=== PATIENT | female | born 1940 | race Caucasian/White ===

== ENCOUNTER 2019-05-18 13:30 | Emergency (ER) | payer MEDICARE, OTHER ==
[~2019-05-18] VITALS: Ht 154.9 cm; Wt 61.2 kg
[~2019-05-18 13:30] MED LIST: ALBUPOW26 XX; CARI-277 PO; FENT12DI TD; GABA300C PO
[2019-05-18] MEDS ORDERED: SODIUM CHLORIDE 0.9% 1,000 ML IVB ONE (14:03)
[2019-05-18] MEDS ORDERED: ONDANSETRON HCL 4 MG/2 ML VIAL IV ONE (14:15)
[2019-05-18 14:19] LABS: Urine Bacteria FEW /hpf (None Seen); Urine Blood 3+ /uL (Negative); Urine Specific Gravity 1.007 (1.001-1.035); Urine WBC 94 /hpf (0 - 5)
[2019-05-18 14:40] LABS: Basophils # (auto) 0.1 uL; Basophils % (auto) 0.9 % (0.0-2.0); Eosinophils # (auto) 0.1 uL; Eosinophils % (auto) 1.1 % (0.0-7.0); Hematocrit 38.1 % (36.0-46.0); Hemoglobin 12.7 g/dL (12.2-16.2); Lymphocytes # (auto) 2.2 uL; Lymphocytes % (auto) 23.8 % (10.0-50.0); Mean Corpuscular Hemoglobin 29.6 pg (28.0-32.0); Mean Corpuscular Hgb Conc. 33.4 g/dL (32.0-36.0); Mean Corpuscular Volume 88.6 fL (80.0-100.0); Monocytes # (auto) 0.6 uL; Monocytes % (auto) 6.6 % (0.0-12.0); Neutrophils # (auto) 6.2 uL; Neutrophils % (auto) 67.6 % (37.0-80.0); Nucleated Red Blood Cells % 0.1 %; Platelet Count (auto) 200 10^3/uL (140-450); Red Cell Distribution Width 13.7 % (11.8-14.3); White Blood Cell 9.2 10^3/uL (4.4-10.8)
[2019-05-18 14:59] LABS: Albumin 3.8 g/dL (3.4-5.0); Calcium 9.1 mg/dL (8.5-10.1)
[2019-05-18 15:04] LABS: BUN/Creatinine Ratio 18.5; Bilirubin, Total 0.4 mg/dL (0.2-1.0); Total Protein 7.5 g/dL (6.4-8.2)
[2019-05-18] MEDS ORDERED: cefTRIAXone 1GM/50ML D5W 50 ML IV ONE (16:15)
[2019-05-18] MEDS ORDERED: MORPHINE SULF INJ 2 MG/ML SYRINGE 1ML IV ONE (16:15)
[2019-05-18 17:53] VITALS: BP 117/72
== END 2019-05-18 19:12 | disposition home or self-care (01) ==
LOC: ER 13:32
DX: N39.0 Urinary tract infection, site not specified (principal); J45.909 Unspecified asthma, uncomplicated
CPT/HCPCS: 36415; 74176; 80053; 81001; 85025; 96365; 96375; 99284; J0696; J2270; J2405; J7030

== ENCOUNTER 2021-09-11 09:56 | Inpatient (IN) | payer MEDICARE, MEDICAID ==
[~2021-09-11] VITALS: Ht 152.4 cm; Wt 58.9 kg
[2021-09-11] MEDS ORDERED: methylPREDNISolone SOD SUCC 125 MG/2 ML VL IV ONE (11:15)
[2021-09-11] MEDS ORDERED: ALBUTEROL SULF 2.5 MG/0.5ML(0.5%) NEB SOLN HHN ONE (11:15)
[2021-09-11] MEDS ORDERED: IPRATROPIUM BROM 0.5 MG/2.5ML INH SOL HHN ONE (11:15)
[2021-09-11 11:36] LABS: Urine Specific Gravity 1.004 (1.001-1.035)
[2021-09-11 11:37] LABS: Urine Blood 1+ /uL (Negative)
[2021-09-11 11:54] LABS: Basophils # (auto) 0 10 ^3/uL (0-0.2); Eosinophils # (auto) 0.1 10 ^3/uL (0-0.8); Eosinophils % (auto) 2.1 % (0.0-7.0); Hematocrit 37.7 % (36.0-46.0); Hemoglobin 12.8 g/dL (12.2-16.2); Lymphocytes # (auto) 1.2 10 ^3/uL (0.4-5.4); Lymphocytes % (auto) 24.8 % (10.0-50.0); Mean Corpuscular Hemoglobin 29.6 pg (28.0-32.0); Mean Corpuscular Hgb Conc. 33.9 g/dL (32.0-36.0); Mean Corpuscular Volume 87.5 fL (80.0-100.0); Monocytes # (auto) 0.5 10 ^3/uL (0-1.3); Monocytes % (auto) 11.2 % (0.0-12.0); Neutrophils # (auto) 2.9 10 ^3/uL (1.6-8.6); Neutrophils % (auto) 60.9 % (37.0-80.0); Nucleated Red Blood Cells % 0.2 %; Red Blood Cells 4.31 10^6/uL (4.0-5.20); Red Cell Distribution Width 13.9 % (11.8-14.3); White Blood Cell 4.8 10^3/uL (4.4-10.8)
[2021-09-11 12:14] LABS: Albumin 3.9 g/dL (3.4-5.0); Calcium 9.2 mg/dL (8.5-10.1); Potassium 3.1 mmol/L (3.5-5.1)
[2021-09-11 12:18] LABS: BUN/Creatinine Ratio 9.9; Bilirubin, Total 0.4 mg/dL (0.2-1.0); Total Protein 7.2 g/dL (6.4-8.2)
[2021-09-11] MEDS ORDERED: MORPHINE SULFATE INJECTION 2 MG/ML SYRG IV ONE ×2 (12:30→14:15)
[2021-09-11] MEDS ORDERED: ONDANSETRON HCL 4 MG/2 ML VIAL IV ONE (12:30)
[2021-09-11 14:06] LABS: Urine WBC 0 - 2 /hpf (0 - 5)
[2021-09-11 14:07] LABS: Urine Bacteria None Seen /hpf (None Seen)
[2021-09-11] MEDS: ALBUTEROL SULF 2.5 MG/0.5ML(0.5%) NEB SOLN NEB ONE ×2 (14:37→15:02)
[2021-09-11] MEDS ORDERED: MORPHINE SULFATE INJECTION 2 MG/ML SYRG IV PRN (17:00)
[2021-09-11] MEDS ORDERED: NITROGLYCERIN 0.4 MG SL TAB SL PRN (17:00)
[2021-09-11] MEDS ORDERED: POTASSIUM EFFERVESENT TAB 25 MEQ PO ONE (17:30)
[2021-09-11] MEDS ORDERED: ACETAMINOPHEN 500 MG TAB PO PRN (17:30)
[2021-09-11] MEDS ORDERED: methylPREDNISolone SOD SUCC 40 MG/ML VL IV SCH (17:30)
[2021-09-11] MEDS: ALBUTEROL SULF 2.5 MG/0.5ML(0.5%) NEB SOLN NEB SCH (18:00)
[2021-09-11] MEDS: IPRATROPIUM BROM 0.5 MG/2.5ML INH SOL NEB SCH (18:00)
[2021-09-11] MEDS: SODIUM CHLORIDE 0.9% 1,000 ML IV SCH (21:28)
[2021-09-11] MEDS: traMADol HCL 50 MG TAB PO PRN (21:28)
[2021-09-11 22:00] VITALS: BP 109/51
[2021-09-11 22:57] VITALS: BP 109/51
[2021-09-12] MEDS: ALBUTEROL SULF 2.5 MG/0.5ML(0.5%) NEB SOLN NEB SCH ×4 (00:18→18:57)
[2021-09-12] MEDS: IPRATROPIUM BROM 0.5 MG/2.5ML INH SOL NEB SCH ×4 (00:18→18:56)
[2021-09-12] MEDS: traMADol HCL 50 MG TAB PO PRN (04:37)
[2021-09-12] MEDS: DOXYCYCLINE 100MG/250ML 250 ML IV SCH ×2 (04:37→18:34)
[2021-09-12 05:00] VITALS: BP 112/59
[2021-09-12] MEDS: SODIUM CHLORIDE 0.9% 1,000 ML IV SCH (07:30)
[2021-09-12 07:50] VITALS: BP 110/70
[2021-09-12 09:00] VITALS: BP 110/70
[2021-09-12] MEDS: ENOXAPARIN SOD 40 MG/0.4 ML SYRINGE SC SCH (09:08)
[2021-09-12 12:00] VITALS: BP 112/62
[2021-09-12] MEDS ORDERED: IBUPROFEN 400 MG TAB PO ONE (12:45)
[2021-09-12] MEDS: methylPREDNISolone SOD SUCC 40 MG/ML VL IV SCH ×2 (13:38→22:00)
[2021-09-12 17:00] VITALS: BP 118/65
[2021-09-12] MEDS: guaiFENesin-CODEINE Liq 5 ML UD PO PRN (18:43)
[2021-09-12] MEDS: ACETYLCYSTEINE 20%(200MG/ML) SOL 4ML NEB SCH (18:56)
[2021-09-12 22:00] VITALS: BP 114/75
[2021-09-12] MEDS: IBUPROFEN 600 MG TAB PO SCH (22:00)
[2021-09-12] MEDS: DOCUSATE SOD 100 MG CAP PO SCH (22:00)
[2021-09-12] MEDS: TEMAZEPAM 15 MG CAP PO PRN (22:03)
[2021-09-13] MEDS: IPRATROPIUM BROM 0.5 MG/2.5ML INH SOL NEB SCH ×4 (00:51→20:06)
[2021-09-13] MEDS: ALBUTEROL SULF 2.5 MG/0.5ML(0.5%) NEB SOLN NEB SCH ×4 (00:51→20:06)
[2021-09-13] MEDS: ALBUTEROL SULF 2.5 MG/0.5ML(0.5%) NEB SOLN NEB PRN (04:52)
[2021-09-13 04:56] VITALS: BP 104/53
[2021-09-13] MEDS: methylPREDNISolone SOD SUCC 40 MG/ML VL IV SCH ×3 (04:58→20:21)
[2021-09-13] MEDS: guaiFENesin-CODEINE Liq 5 ML UD PO PRN (04:58)
[2021-09-13] MEDS: DOXYCYCLINE 100MG/250ML 250 ML IV SCH ×2 (04:58→17:43)
[2021-09-13] MEDS: ACETYLCYSTEINE 20%(200MG/ML) SOL 4ML NEB SCH ×2 (05:34→11:27)
[2021-09-13 06:45] LABS: BUN/Creatinine Ratio 18.5; Potassium 3.5 mmol/L (3.5-5.1)
[2021-09-13 06:46] LABS: Calcium 9.3 mg/dL (8.5-10.1); Magnesium 2.3 mg/dL (1.6-2.6)
[2021-09-13 07:50] VITALS: BP 116/56
[2021-09-13 08:20] VITALS: BP 116/56
[2021-09-13] MEDS: DOCUSATE SOD 100 MG CAP PO SCH ×2 (10:12→20:21)
[2021-09-13] MEDS: IBUPROFEN 600 MG TAB PO SCH ×2 (10:12→20:22)
[2021-09-13] MEDS: ENOXAPARIN SOD 40 MG/0.4 ML SYRINGE SC SCH (10:12)
[2021-09-13] MEDS ORDERED: POTASSIUM CHL 20 Meq TABLET PO ONE (11:15)
[2021-09-13 12:47] LABS: Free T4 (Free Thyroxine) 1.03 ng/dL (0.89-1.76)
[2021-09-13 12:48] LABS: T3 Total 0.62 ng/mL (0.60-1.81)
[2021-09-13 13:16] VITALS: BP 130/61
[2021-09-13 16:40] VITALS: BP 123/64
[2021-09-13] MEDS: LACTULOSE 20Gm/30ML SOLN PO PRN (20:22)
[2021-09-13 22:17] VITALS: BP 134/61
[2021-09-14] MEDS: ACETYLCYSTEINE 20%(200MG/ML) SOL 4ML NEB SCH ×3 (02:40→21:27)
[2021-09-14] MEDS: ALBUTEROL SULF 2.5 MG/0.5ML(0.5%) NEB SOLN NEB SCH ×5 (02:40→23:51)
[2021-09-14] MEDS: IPRATROPIUM BROM 0.5 MG/2.5ML INH SOL NEB SCH ×5 (02:41→23:51)
[2021-09-14 05:12] VITALS: BP 110/53
[2021-09-14] MEDS: DOXYCYCLINE 100MG/250ML 250 ML IV SCH ×2 (05:17→17:57)
[2021-09-14] MEDS: methylPREDNISolone SOD SUCC 40 MG/ML VL IV SCH ×3 (05:18→21:03)
[2021-09-14 09:05] VITALS: BP 124/62
[2021-09-14] MEDS: DOCUSATE SOD 100 MG CAP PO SCH ×2 (10:08→21:03)
[2021-09-14] MEDS: IBUPROFEN 600 MG TAB PO SCH ×2 (10:09→21:03)
[2021-09-14] MEDS: ENOXAPARIN SOD 40 MG/0.4 ML SYRINGE SC SCH (10:09)
[2021-09-14] MEDS: guaiFENesin-CODEINE Liq 5 ML UD PO PRN ×2 (10:10→17:57)
[2021-09-14] MEDS: LACTULOSE 20Gm/30ML SOLN PO PRN (10:10)
[2021-09-14 13:00] VITALS: BP 125/65
[2021-09-14] MEDS: traMADol HCL 50 MG TAB PO PRN (15:19)
[2021-09-14 17:27] VITALS: BP 123/87
[2021-09-14] MEDS: TEMAZEPAM 15 MG CAP PO PRN (21:03)
[2021-09-14] MEDS: ALBUTEROL SULF 2.5 MG/0.5ML(0.5%) NEB SOLN NEB PRN (21:26)
[2021-09-14 22:02] VITALS: BP 120/57
[2021-09-15 04:42] VITALS: BP 111/60
[2021-09-15] MEDS: DOXYCYCLINE 100MG/250ML 250 ML IV SCH (05:08)
[2021-09-15] MEDS: methylPREDNISolone SOD SUCC 40 MG/ML VL IV SCH ×2 (05:08→14:10)
[2021-09-15] MEDS: IPRATROPIUM BROM 0.5 MG/2.5ML INH SOL NEB SCH ×2 (07:05→13:12)
[2021-09-15] MEDS: ACETYLCYSTEINE 20%(200MG/ML) SOL 4ML NEB SCH ×2 (07:05→13:16)
[2021-09-15] MEDS: ALBUTEROL SULF 2.5 MG/0.5ML(0.5%) NEB SOLN NEB SCH ×2 (07:05→13:12)
[2021-09-15 08:57] VITALS: BP 112/51
[2021-09-15] MEDS: DOCUSATE SOD 100 MG CAP PO SCH (09:38)
[2021-09-15] MEDS: ENOXAPARIN SOD 40 MG/0.4 ML SYRINGE SC SCH (09:46)
[2021-09-15] MEDS: IBUPROFEN 600 MG TAB PO SCH (09:46)
[2021-09-15 11:53] VITALS: BP 112/51
[2021-09-15 12:46] VITALS: BP 114/64
[2021-09-15] MEDS: ALBUTEROL SULF 2.5 MG/0.5ML(0.5%) NEB SOLN NEB PRN (14:21)
[2021-09-15 16:53] VITALS: BP 123/70
== END 2021-09-15 17:20 | disposition home or self-care (01) | DRG 202 ==
LOC: ER 09:56 → EDBD 09:56 → TELE 16:59 → WEST WING 18:12 → TELE-WESTW 18:19 → WEST WING 09-14 11:52
PROVIDERS: ADMIT Internal Medicine; ATTEND Internal Medicine
DX: J45.42 Moderate persistent asthma with status asthmaticus (principal); J98.11 Atelectasis; J20.9 Acute bronchitis, unspecified; E87.6 Hypokalemia; J01.90 Acute sinusitis, unspecified; Z20.822 Contact with and (suspected) exposure to COVID-19; F12.10 Cannabis abuse, uncomplicated; G89.29 Other chronic pain; J47.9 Bronchiectasis, uncomplicated; Z86.16 Personal history of COVID-19; Z87.442 Personal history of urinary calculi; Z90.710 Acquired absence of both cervix and uterus; Z98.82 Breast implant status
CPT/HCPCS: 36415; 71045; 71250; 80048; 80053; 81001; 82306; 83735; 83880; 84439; 84443; 84480; 84484; 85025; 87070; 87205; 93005; 94640; 96361; 96374; 96375; G0378; J2405; J3490

== ENCOUNTER → 2022-12-04 | Outpatient (CLI) | payer MEDICARE | END | disposition home or self-care (01) | LOC: LAB 06:31 | PROVIDERS: ATTEND Licensed Practical Nurse | DX: N39.0 Urinary tract infection, site not specified (principal) | CPT/HCPCS: 87086 ==

== ENCOUNTER → 2022-12-19 | Outpatient (CLI) | payer OTHER ==
[2022-12-19 09:14] LABS: Basophils # (auto) 0 10 ^3/uL (0-0.2); Basophils % (auto) 0.9 % (0.0-2.0); Eosinophils # (auto) 0.2 10 ^3/uL (0-0.8); Eosinophils % (auto) 3.4 % (0.0-7.0); Hemoglobin 12.2 g/dL (12.2-16.2); Lymphocytes % (auto) 42.2 % (10.0-50.0); Mean Corpuscular Hemoglobin 30.2 pg (28.0-32.0); Mean Corpuscular Hgb Conc. 33.8 g/dL (32.0-36.0); Mean Corpuscular Volume 89.3 fL (80.0-100.0); Monocytes # (auto) 0.4 10 ^3/uL (0-1.3); Monocytes % (auto) 9.4 % (0.0-12.0); Neutrophils # (auto) 2.1 10 ^3/uL (1.6-8.6); Neutrophils % (auto) 44.1 % (37.0-80.0); Red Blood Cells 4.03 10^6/uL (4.0-5.20); Red Cell Distribution Width 13.7 % (11.8-14.3); White Blood Cell 4.7 10^3/uL (4.4-10.8)
[2022-12-19 09:37] LABS: Urine Bacteria FEW /hpf (None Seen); Urine Blood Negative /uL (Negative); Urine Clarity Clear (Clear); Urine Color Yellow (Yellow); Urine Protein, UAD Negative (Negative); Urine Specific Gravity 1.018 (1.001-1.035); Urine Urobilinogen Normal (Negative); Urine WBC 4 /hpf (0 - 5)
[2022-12-19 09:51] LABS: Albumin 3.5 g/dL (3.4-5.0); BUN/Creatinine Ratio 18.6 (10.0-20.0); Calcium 8.8 mg/dL (8.5-10.1); Potassium 4.8 mmol/L (3.5-5.1)
[2022-12-19 09:53] LABS: Bilirubin, Total 0.5 mg/dL (0.2-1.0); Total Protein 6.9 g/dL (6.4-8.2)
== END | disposition home or self-care (01) ==
LOC: LAB 08:39
PROVIDERS: ATTEND Student in an Organized Health Care Education/Training Program
DX: N39.0 Urinary tract infection, site not specified (principal); R73.9 Hyperglycemia, unspecified
CPT/HCPCS: 36415; 80053; 81001; 83036; 85025; 87086

== ENCOUNTER 2023-02-05 17:59 | Emergency (ER) | payer OTHER ==
[~2023-02-05] VITALS: Ht 154.9 cm; Wt 57.6 kg
[2023-02-05 18:33] VITALS: TEMP 97.4
[2023-02-05] MEDS ORDERED: IBUP1TAB4 PO (20:41)
[2023-02-05] MEDS ORDERED: ONDANSETRON ODT 4 MG TAB PO ONE (20:45)
[2023-02-05] MEDS ORDERED: HYDROmorphone HCL 2 MG/ML VL/or syr IM ONE (20:45)
[2023-02-05 21:06] VITALS: O2SAT 98
[2023-02-05 21:31] VITALS: BP 144/66; PULSE 63; RESP 18
== END 2023-02-05 21:40 | disposition home or self-care (01) ==
LOC: ER 17:59
DX: S16.1XXA Strain of muscle, fascia and tendon at neck level, initial encounter (principal); S09.90XA Unspecified injury of head, initial encounter; J45.909 Unspecified asthma, uncomplicated; F12.90 Cannabis use, unspecified, uncomplicated; Z87.442 Personal history of urinary calculi; Z98.890 Other specified postprocedural states; W22.8XXA Striking against or struck by other objects, initial encounter; Y93.89 Activity, other specified; Y92.89 Other specified places as the place of occurrence of the external cause; Y99.8 Other external cause status
CPT/HCPCS: 70450; 72125; 96372; 99285; J1170; Q0162

== ENCOUNTER → 2023-02-19 | Outpatient (CLI) | payer OTHER ==
[2023-02-19 13:37] LABS: Alanine Aminotransferase 17 U/L (7-40); Albumin 4.7 g/dL (3.2-4.8); Alkaline Phosphatase 64 U/L (46-116); Anion Gap 7 (5-15); Aspartate Aminotransferase 11 U/L (13-40); BUN/Creatinine Ratio 14.3 (10.0-20.0); Bilirubin, Total 0.9 mg/dL (0.2-1.0); Blood Urea Nitrogen 10 mg/dL (9-23); Carbon Dioxide 28 mmol/L (20-30); Chloride 104 mmol/L (98-107); Cholesterol 190 mg/dL (< 200); Glucose 96 mg/dL (74-106); HDL Cholesterol 64 mg/dL (40-59); LDL Cholesterol 114 mg/dL (< 100); Potassium 4.2 mmol/L (3.5-5.1); Sodium 139 mmol/L (136-145); Total Protein 7.5 g/dL (5.7-8.2); Triglycerides 76 mg/dL (< 150)
[2023-02-19 15:48] LABS: Urine Bacteria FEW /hpf (None Seen); Urine Blood TRACE /uL (Negative); Urine Clarity Clear (Clear); Urine Color Colorless (Yellow); Urine Mucus FEW (None Seen); Urine Protein, UAD Negative (Negative); Urine Specific Gravity 1.012 (1.001-1.035); Urine Urobilinogen Normal (Negative); Urine WBC 1 /hpf (0 - 5)
[2023-02-20 08:06] LABS: Free Thyroxine Index 1.9 (1.2-4.9); Thyroxine (T4) 6.8 ug/dL (4.5-12.0)
== END | disposition home or self-care (01) ==
LOC: LAB 11:17
PROVIDERS: ATTEND Internal Medicine
DX: Z13.1 Encounter for screening for diabetes mellitus (principal); Z29.9 Encounter for prophylactic measures, unspecified; E55.9 Vitamin D deficiency, unspecified
CPT/HCPCS: 36415; 80053; 80061; 81001; 82306; 83036; 83735; 84443; 87086

== ENCOUNTER → 2023-02-23 | Outpatient (CLI) | payer OTHER ==
[2023-02-23 17:02] LABS: Urine Bacteria NONE SEEN /hpf (None Seen); Urine Blood TRACE /uL (Negative); Urine Clarity Clear (Clear); Urine Color Yellow (Yellow); Urine Protein, UAD Negative (Negative); Urine Specific Gravity 1.017 (1.001-1.035); Urine Urobilinogen Normal (Negative); Urine WBC 2 /hpf (0 - 5)
== END | disposition home or self-care (01) ==
LOC: LAB 16:27
PROVIDERS: ATTEND Urology
DX: R39.0 Extravasation of urine (principal)
CPT/HCPCS: 81001; 87086

== ENCOUNTER 2023-03-15 16:19 | Emergency (ER) | payer OTHER ==
[~2023-03-15] VITALS: Ht 165.1 cm; Wt 66.0 kg
[2023-03-15 17:30] VITALS: BP 154/80; PULSE 78; RESP 18; O2SAT 98
[2023-03-15 18:03] LABS: Basophils # (auto) 0 10 ^3/uL (0-0.2); Eosinophils # (auto) 0.1 10 ^3/uL (0-0.8); Eosinophils % (auto) 2.6 % (0.0-7.0); Hematocrit 38.5 % (36.0-46.0); Hemoglobin 12.8 g/dL (12.2-16.2); Lymphocytes # (auto) 1.8 10 ^3/uL (0.4-5.4); Lymphocytes % (auto) 38.9 % (10.0-50.0); Mean Corpuscular Hemoglobin 29.7 pg (28.0-32.0); Mean Corpuscular Hgb Conc. 33.4 g/dL (32.0-36.0); Mean Corpuscular Volume 89.1 fL (80.0-100.0); Monocytes # (auto) 0.4 10 ^3/uL (0-1.3); Neutrophils # (auto) 2.1 10 ^3/uL (1.6-8.6); Neutrophils % (auto) 47.5 % (37.0-80.0); Nucleated Red Blood Cells % 0.2 %; Red Blood Cells 4.32 10^6/uL (4.0-5.20); Red Cell Distribution Width 13.9 % (11.8-14.3); White Blood Cell 4.5 10^3/uL (4.4-10.8)
[2023-03-15 20:13] LABS: Urine Bacteria NONE SEEN /hpf (None Seen); Urine Blood 1+ /uL (Negative); Urine Clarity Clear (Clear); Urine Color Colorless (Yellow); Urine Protein, UAD Negative (Negative); Urine Specific Gravity 1.012 (1.001-1.035); Urine Urobilinogen Normal (Negative); Urine WBC 1 /hpf (0 - 5)
== END 2023-03-15 21:16 | disposition left against medical advice (07) ==
LOC: EDUNIT# 16:19 → EDBD 16:19 → ER 16:19
DX: R06.02 Shortness of breath (principal); Z53.21 Procedure and treatment not carried out due to patient leaving prior to being seen by health care provider
CPT/HCPCS: 36415; 71045; 81001; 85025; 93005